=== PATIENT | female | born 1955 | race Caucasian/White ===

== ENCOUNTER 2017-04-19 13:30 | Emergency (ER) | payer BC, MEDICAID ==
--- NOTE | 2017-04-20 10:13 | ER Physician Documentation ---
DATE OF SERVICE: 04/19/2017 HISTORY AND PHYSICAL AND EMERGENCY ROOM NOTE AND TREATMENT NOTE The patient was triaged by the nurse, Kai. The patient came to the hospital because the G-tube was leaking and they wanted the Premier place from where it came, telephone number [phone]. They wanted the tube to be taken out and a new tube firmly placed and attached to be put in and that was done with me with Kai, the nurse helping me. It was done, the tube was placed in. HISTORY OF PRESENT ILLNESS: The patient does not know where she is coming from. I got some report from the patient's record of admission. The patient came from [facility]. The patient's primary care physician is Dr. Adrian Buckner, [address] [facility], [address]. The patient's dentist is Luba Rodriguez. Mate Fishing Vessel is Dr. Darrin Anderosn. Mortuary: [facility]. [facility], [address] [place] [address]. ALLERGIES: None known. The patient's admitting diagnosis was hemiplegia and hemiparesis following OT 169.251 encounter for attention to gastrostomy and paroxysmal atrial fibrillation is 148.0. Epilepsy is G40.909, unspecified, non-detectable. The patient has a right-sided hemiplegia occurred in the past. Dr. Buckner's office number is [phone], fax number is [phone]. The triage nurse took the vital signs, which was 98.5, pulse of 72, respirations 18, blood pressure 144/74. The patient's next of kin is Monet Davison. The patient's history of present illness could not be obtained as the patient is not very verbal. The patient is afebrile, vital signs are normal. There is no hypertension detected. She has an old right-sided hemiplegia was present. The patient's physical examination reveals she is an obese lady, not in any acute distress. She does not know where she is. General exam is otherwise benign and negative except for the right-sided hemiplegia, incontinence ____. She has a G-tube in place which is leaking. The patient has no edema over the legs and no evidence of any meningeal signs. Primary insurance is [employer]. Rounding provider was Dr. Pierre Solorio over at the other place. PAST MEDICAL HISTORY: History of hypertension, hyperlipidemia, atrial fibrillation, stroke, anemia, and obstructive sleep apnea. She was presented to [facility] in November 2006 due to middle cerebral artery stroke, given TPA without improvement. CTA did not show any large vessel occlusion, not an endovascular candidate, was transferred to [facility] for further care and management and rehabilitation. She has been a patient of ____ since 01/01/2017, no interval change. She just says only yes to everything. PHYSICAL EXAMINATION: GENERAL: Otherwise of being obese is benign and negative. No meningeal signs. No evidence of any tumor. No evidence of any DVT. CHEST: Clear. No rales, rhonchi, or bronchial breathing. ABDOMEN: She has a G-tube that was replaced with 20-Saudi Arabian G-tube which was leaking, was replaced with a 24 G-tube, 15 mL of water was used. It was tightly packed. We checked up with air insufflation, it was nicely in the stomach. Abdomen is obese, otherwise benign and negative. CENTRAL NERVOUS SYSTEM: Right-sided hemiplegia. Otherwise, no epilepsy. No seizure activity is seen. 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 HEART: Reveals normal heart sounds. No fourth heart sound. Second heart sound is physiologically split. Third heart sound is absent. The patient does not have any cardiac arrhythmia at the present moment. On previous admission, she was having a stroke and injury to the brain. CLINICAL IMPRESSION: The patient has malfunctioning G-tube which was changed and a new 24-Saudi Arabian Premier G-tube was placed and the patient will be sent back to her location at [place] [phone]. OTHER DIAGNOSES: Include atrial fibrillation, history of stroke affecting the left-sided cerebrovascular accident with right-sided hemiplegia, hypertension, hyperlipidemia, obesity. Dr. Buckner is the physician. Thank you very much Dr. Buckner for this privilege. Kai was the nurse who assisted me. JOB# [id number]
--- NOTE | 2017-04-20 10:13 | ER Physician Documentation ---
DATE OF SERVICE: 04/19/2017 HISTORY AND PHYSICAL AND EMERGENCY ROOM NOTE AND TREATMENT NOTE The patient was triaged by the nurse, Kai. The patient came to the hospital because the G-tube was leaking and they wanted the Premier place from where it came, telephone number [phone]. They wanted the tube to be taken out and a new tube firmly placed and attached to be put in and that was done with me with Kai, the nurse helping me. It was done, the tube was placed in. HISTORY OF PRESENT ILLNESS: The patient does not know where she is coming from. I got some report from the patient's record of admission. The patient came from [facility]. The patient's primary care physician is Dr. Adrian Buckner, [address] [facility], [address]. The patient's dentist is Luba Rodriguez. Product Safety Compliance Leader is Dr. Darrin Anderson. Mortuary: [facility]. [facility], [address] [place] [address]. ALLERGIES: None known. The patient's admitting diagnosis was hemiplegia and hemiparesis following OT 169.251 encounter for attention to gastrostomy and paroxysmal atrial fibrillation is 148.0. Epilepsy is G40.909, unspecified, non-detectable. The patient has a right-sided hemiplegia occurred in the past. Dr. Buckner's office number is [phone], fax number is [phone]. The triage nurse took the vital signs, which was 98.5, pulse of 72, respirations 18, blood pressure 144/74. The patient's next of kin is Monet Davison. The patient's history of present illness could not be obtained as the patient is not very verbal. The patient is afebrile, vital signs are normal. There is no hypertension detected. She has an old right-sided hemiplegia was present. The patient's physical examination reveals she is an obese lady, not in any acute distress. She does not know where she is. General exam is otherwise benign and negative except for the right-sided hemiplegia, incontinence ____. She has a G-tube in place which is leaking. The patient has no edema over the legs and no evidence of any meningeal signs. Primary insurance is [employer]. Rounding provider was Dr. Pierre Solorio over at the other place. PAST MEDICAL HISTORY: History of hypertension, hyperlipidemia, atrial fibrillation, stroke, anemia, and obstructive sleep apnea. She was presented to [facility] in November 2006 due to middle cerebral artery stroke, given TPA without improvement. CTA did not show any large vessel occlusion, not an endovascular candidate, was transferred to [facility] for further care and management and rehabilitation. She has been a patient of ____ since 01/01/2017, no interval change. She just says only yes to everything. PHYSICAL EXAMINATION: GENERAL: Otherwise of being obese is benign and negative. No meningeal signs. No evidence of any tumor. No evidence of any DVT. CHEST: Clear. No rales, rhonchi, or bronchial breathing. ABDOMEN: She has a G-tube that was replaced with 20-Scottish G-tube which was leaking, was replaced with a 24 G-tube, 15 mL of water was used. It was tightly packed. We checked up with air insufflation, it was nicely in the stomach. Abdomen is obese, otherwise benign and negative. CENTRAL NERVOUS SYSTEM: Right-sided hemiplegia. Otherwise, no epilepsy. No seizure activity is seen. 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 HEART: Reveals normal heart sounds. No fourth heart sound. Second heart sound is physiologically split. Third heart sound is absent. The patient does not have any cardiac arrhythmia at the present moment. On previous admission, she was having a stroke and injury to the brain. CLINICAL IMPRESSION: The patient has malfunctioning G-tube which was changed and a new 24-Scottish Premier G-tube was placed and the patient will be sent back to her location at [place] [phone]. OTHER DIAGNOSES: Include atrial fibrillation, history of stroke affecting the left-sided cerebrovascular accident with right-sided hemiplegia, hypertension, hyperlipidemia, obesity. Dr. Buckner is the physician. Thank you very much Dr. Buckner for this privilege. Kai was the nurse who assisted me. JOB# [id number]
--- NOTE | 2017-04-20 10:13 | ER Physician Documentation ---
DATE OF SERVICE: 04/19/2017 HISTORY AND PHYSICAL AND EMERGENCY ROOM NOTE AND TREATMENT NOTE The patient was triaged by the nurse, Kai. The patient came to the hospital because the G-tube was leaking and they wanted the Premier place from where it came, telephone number [phone]. They wanted the tube to be taken out and a new tube firmly placed and attached to be put in and that was done with me with Kai, the nurse helping me. It was done, the tube was placed in. HISTORY OF PRESENT ILLNESS: The patient does not know where she is coming from. I got some report from the patient's record of admission. The patient came from [facility]. The patient's primary care physician is Dr. Adrian Buckner, [address] [facility], [address]. The patient's dentist is Luba Rodriguez. Primary Care Provider is Dr. Darrin Anderson. Mortuary: [facility]. [facility], [address] [place] [address]. ALLERGIES: None known. The patient's admitting diagnosis was hemiplegia and hemiparesis following OT 169.251 encounter for attention to gastrostomy and paroxysmal atrial fibrillation is 148.0. Epilepsy is G40.909, unspecified, non-detectable. The patient has a right-sided hemiplegia occurred in the past. Dr. Buckner's office number is [phone], fax number is [phone]. The triage nurse took the vital signs, which was 98.5, pulse of 72, respirations 18, blood pressure 144/74. The patient's next of kin is Monet Davison. The patient's history of present illness could not be obtained as the patient is not very verbal. The patient is afebrile, vital signs are normal. There is no hypertension detected. She has an old right-sided hemiplegia was present. The patient's physical examination reveals she is an obese lady, not in any acute distress. She does not know where she is. General exam is otherwise benign and negative except for the right-sided hemiplegia, incontinence ____. She has a G-tube in place which is leaking. The patient has no edema over the legs and no evidence of any meningeal signs. Primary insurance is [employer]. Rounding provider was Dr. Pierre Solorio over at the other place. PAST MEDICAL HISTORY: History of hypertension, hyperlipidemia, atrial fibrillation, stroke, anemia, and obstructive sleep apnea. She was presented to [facility] in November 2006 due to middle cerebral artery stroke, given TPA without improvement. CTA did not show any large vessel occlusion, not an endovascular candidate, was transferred to [facility] for further care and management and rehabilitation. She has been a patient of ____ since 01/01/2017, no interval change. She just says only yes to everything. PHYSICAL EXAMINATION: GENERAL: Otherwise of being obese is benign and negative. No meningeal signs. No evidence of any tumor. No evidence of any DVT. CHEST: Clear. No rales, rhonchi, or bronchial breathing. ABDOMEN: She has a G-tube that was replaced with 20-Vincentian G-tube which was leaking, was replaced with a 24 G-tube, 15 mL of water was used. It was tightly packed. We checked up with air insufflation, it was nicely in the stomach. Abdomen is obese, otherwise benign and negative. CENTRAL NERVOUS SYSTEM: Right-sided hemiplegia. Otherwise, no epilepsy. No seizure activity is seen. 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 HEART: Reveals normal heart sounds. No fourth heart sound. Second heart sound is physiologically split. Third heart sound is absent. The patient does not have any cardiac arrhythmia at the present moment. On previous admission, she was having a stroke and injury to the brain. CLINICAL IMPRESSION: The patient has malfunctioning G-tube which was changed and a new 24-Vincentian Premier G-tube was placed and the patient will be sent back to her location at [place] [phone]. OTHER DIAGNOSES: Include atrial fibrillation, history of stroke affecting the left-sided cerebrovascular accident with right-sided hemiplegia, hypertension, hyperlipidemia, obesity. Dr. Buckner is the physician. Thank you very much Dr. Buckner for this privilege. Kai was the nurse who assisted me. JOB# [id number]
== END 2017-04-19 15:00 | disposition home or self-care (01) ==
LOC: ER 13:30
DX: Z43.1 Encounter for attention to gastrostomy (principal); I10 Essential (primary) hypertension; E78.5 Hyperlipidemia, unspecified; I48.91 Unspecified atrial fibrillation; D64.9 Anemia, unspecified
CPT/HCPCS: Z7502; Z7610